=== PATIENT | female | born 1955 | race Caucasian/White ===

== ENCOUNTER 2025-02-15 12:03 | Emergency (ER) | payer OTHER ==
[~2025-02-15] VITALS: Ht 157.5 cm; Wt 61.1 kg
[~2025-02-15 12:03] MED LIST: LACT1CAP26 PO; METR-159 PO; [UNRECOGNIZED DRUG - CODE] PO
[2025-02-15 13:11] VITALS: BP 124/73; PULSE 79; RESP 16; TEMP 97.3; O2SAT 100
--- NOTE | 2025-02-15 14:11 | Physician Documentation ---
History of Present Illness ~ Chief Complaint: Nausea Stated Complaint: NAUSEA Time Seen by MD: 13:55 HPI A 69-year-old female who presents with several hours of nausea and upper GI discomfort described as queasiness, patient reports no nausea, vomiting, diarrhea, fever, constipation, abdominal pain, chest pain, shortness of breath, or any other acute symptoms or concerns. Patient reports onset of symptoms around 4:30 this morning after she took a prescribed antibiotic following being discharged from the hospital recently due to appendectomy. Patient reports he has not been taking antibiotic with food. Reports that she is having regular bowel movements and passing gas. Medication Reconciliation Allergies: Coded Allergies: Penicillins (Verified Allergy, Unknown, 02/15/25) hydrocodone (Verified Allergy, Unknown, 02/15/25) patient feels it effects her breathing Scheduled Ciprofloxacin HCl (Ciprofloxacin HCl), 500 MG PO BIDQ Lactobacillus Rhamnosus (Culturelle), 1 CAP PO DAILY Metronidazole* (Flagyl*), 500 MG PO Q8H Scheduled PRN ONDANSETRON ODT 4mg tablet (Ondansetron Odt), 1 TAB PO Q6H PRN PRN for nausea/vomiting Discontinued Medications Home Med List (No Home Medications), (Reported) Past Medical History Past Surgical History: appendectomy Review of Systems ROS As stated above in the HPI, otherwise all systems are reviewed and negative. Physical Exam Vital Signs: Temperature: 97.3, Source: Oral, Heart Rate: 79, Respiratory Rate: 16, BP: 124/73, Pulse Oximetry: 100, Weight: 61.100 Oxygen Flow Rate: 0 Physical Exam VITALS: Reviewed and as above. GENERAL: Alert, nontoxic appearing, no apparent distress. RESPIRATORY: No increased work of breathing, no respiratory distress, speaking in full clear sentences clear lung sounds in all ordoñez CV: Regular rate and rhythm no murmur GI: Soft, nontender, nondistended, no rebound, no guarding, bowel sounds present SKIN: Several stapled surgical incisions abdomen well healing appearing without surrounding erythema or discharge and nontender Progress Results/Orders Results/Orders Completed Orders - DAMARI TODD Ondansetron Disint. Tablet (Zofran Odt T (02/15/25 14:05) Vital Signs 02/15/25 02/15/25 12:15 13:11 Temp 97.3 97.3 Pulse 88 79 Resp 18 16 B/P (MAP) 142/78 124/73 (90) Pulse Ox 99 100 O2 Flow Rate 0 0 Medical Decision Making Findings This is a 69-year-old female who presented to the emergency department with several hours of nausea following taking a prescribed antibiotic this morning empty stomach, suspect patient's nausea is due to GI upset related to antibiotic use. It is reassuring patient reports no other acute symptoms or concerns including no fever, abdominal pain, chest pain, shortness of breath, vomiting, diarrhea, or constipation. This is otherwise well-appearing and appropriate for outpatient follow up, patient provided home care instructions including return to care precautions and follow up instructions which he verbalized understanding of. Diff Dx GI Bleed:Consideration: Include: Diverticulitis, Esophagitis, Gastroenteritis, Inflammatory BD, PUD Diff Dx Pain:Considerations: Include: Angina/DC, Appendicitis, Bowel obstruction, Cholangitis, Constipation, Esophagitis, Gastritis/PUD, Gastroenteritis, Inflammatory BD, Pancreatitis, Urinary obstruction, Urinary tract infection, Urolithiasis Diff Dx N/V/D:Considerations: Include: Appendicitis, Dehydration, DKA, Diarrhea - bacterial, Diarrhea - parasitic, Diarrhea - viral, Diverticulitis, Diverticulosis, Drug toxicity, Electrolyte imbalance, Food poisoning, Gastroente ritis, GE reflux, Hypovolemia, Hypotension, Inflammatory BD, Pancreatitis, PUD, UTI Diff Dx Rectal:Considerations: Unlikely: Fissure, Fistula, Foreign body, Impaction, Perirectal abscess, Rectal prolapse, Subcutaneous abscess, Thrombosed hemorrhoid, Ulcer, UTI, Other Departure Time of Disposition: 14:09 Disposition: 01 HOME / SELF CARE / HOMELESS Impression: Primary Impression: Nausea Condition: Improved Discharge Instructions: Nausea and Vomiting, Adult, [id number] Additional Instructions: Please use the prescribed Zofran as needed for nausea or vomiting, I recommend taking your prescribed antibiotics with food to avoid stomach upset. It is reassuring you had no other symptoms and the onset of your symptoms were after taking this antibiotic therefore I believe your symptoms are caused by your recent antibiotic use, if new symptoms develop please return to the emergency department. Please follow up with your primary care provider in the next few days. Please return to the emergency department for any new or worsening concerning symptoms. Referrals: NO PRIMARY CARE PROVIDER (PCP) Prescriptions ONDANSETRON ODT 4mg tablet (ONDANSETRON ODT) 4 Mg Tab.rapdis 1 TAB PO Q6H PRN PRN for nausea/vomiting for 4 Days, #16 TAB 0 Refills Prov: DAMARI TODD 02/15/25 Education Educated: Patient Educated regarding: diagnosis, treatment, prognosis, need for follow up Signature Scribe Signature: No scribe Attestation: The note accurately reflects work and decisions made by me.NEYDA Patel 02/16/25 01:45 DAMARI TODD Feb 15, 2025 14:11
[2025-02-15] MEDS ORDERED: ONDA-243 PO (14:12)
[2025-02-15] MEDS: ondansetron 4mg rapidly disintigrating tab PO ONE (14:23)
== END 2025-02-15 14:56 | disposition home or self-care (01) ==
LOC: ER 12:03
DX: R11.0 Nausea (principal); Z88.0 Allergy status to penicillin; Z88.5 Allergy status to narcotic agent; Z90.49 Acquired absence of other specified parts of digestive tract; Z79.899 Other long term (current) drug therapy
CPT/HCPCS: 99283